=== PATIENT | female | born 1965 | race Caucasian/White ===

== ENCOUNTER 2020-04-01 14:42 | Emergency (ER) | payer SELFPAY ==
[~2020-04-01] VITALS: Ht 165.1 cm; Wt 52.2 kg
[2020-04-01 14:45] VITALS: BP 113/79
--- NOTE | 2020-04-01 14:45 | NUR ---
ED Nurse Note: Pt came by [facility] because "needs another colostomy bag." pt has LLQ colostomy bag. Stoma is beefy red,, stool is brown. Pt is alert and orientedx4, ambulatory. Set up on monitor. Pt has been seen by CHIARA.
--- NOTE | 2020-04-01 14:53 | Emergency Room Report ---
History of Present Illness General Chief Complaint: General Complaint Source: Patient, EMS Present Illness HPI Patient is a 54-year-old female noncompliant with questioning about her past medical history who presents to the ER from [facility] by EMS for colostomy bag change. Patient states that she needs her colostomy bag changed. She denies any other symptoms. She denies any fever or chills. She denies any abdominal pain. She denies any nausea or vomiting. 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 Patient History Last Menstrual Period: na Reviewed Nursing Documentation: PMH: Agreed; PSxH: Agreed Nursing Documentation-PMH Past Medical History: No History, Except For Hx Gastrointestinal Problems: Yes - colostomy History Of Psychiatric Problem: Yes Review of Systems All Other Systems: negative except mentioned in HPI Physical Exam Vital Signs Date Time Temp Pulse Resp B/P (MAP) Pulse Ox O2 Delivery O2 Flow Rate FiO2 04/01/20 14:44 98.1 72 16 110/76 (87) 99 Room Air Sp02 EP Interpretation: reviewed, normal General Appearance: alert, GCS 15, non-toxic, other - Disheveled Head: normocephalic, atraumatic Eyes: bilateral eye normal inspection, bilateral eye PERRL ENT: hearing grossly normal, normal pharynx, no angioedema, normal voice Neck: full range of motion, supple/symm/no masses Respiratory: chest non-tender, lungs clear, normal breath sounds, speaking full sentences Cardiovascular #1: regular rate, rhythm, no edema Gastrointestinal: normal bowel sounds, non tender, soft, non-distended, no guarding, no rebound, other - Colostomy site with colostomy bag and brown stool inside of colostomy done Rectal: deferred Musculoskeletal: normal range of motion 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 Mendoza, have assessed and agrees that patient is medically stable for discharge to an outpatient disposition. Diagnostic Impression: Primary Impression: Colostomy care ER Course Patient offered food and clean close. Colostomy care performed. After discussing risks and benefits of further diagnostics, treatment plans, as well as indications for and risks of admission, the patient is agreeable to being discharged home. I have explained that their evaluation and treatment in the emergency department today is an important step towards them achieving better health but that their evaluation today is not intended to replace further evaluation and treatment by a physician in their local clinic. I have explained that while the current findings suggest no immediate life threatening emergency they will require further evaluation and treatment by a physician of their choice in their area. They understand that it will be necessary for them to re view the final reports of their ED visit with their clinic physician. We have reviewed indications for return to the Emergency Department. I have explained that additional time may need to pass and/or additional testing as an outpatient may be necessary before a definitive diagnosis can be made. They tell me they are willing to follow up as instructed within the timeframe I recommend. They appear to understand what we discussed. Additionally they understand that if they are unable to be seen by an outpatient physician they are welcome, and in fact should, return to the Emergency Department for a repeat evaluation. The patient is stable at time of discharge. Last Vital Signs Date Time Temp Pulse Resp B/P (MAP) Pulse Ox O2 Delivery O2 Flow Rate FiO2 04/01/20 14:44 98.1 72 16 110/76 (87) 99 Room Air Disposition: HOME, SELF-CARE Condition: Stable Referrals: [facility], [facility] Rehan Paez [facility] Patient Instructions: Colostomy Home Guide Additional Instructions: The patient was provided with discharge instructions, notified to follow-up with a primary care doctor and or specialist in the next 24-48 hours, and to return to the ED if they have worsening of their symptoms. Please note that this report is being documented using FetchBack technology. This can lead to erroneous entry secondary to incorrect interpretation by the dictating instrument. Isi Mendoza M.D. Apr 01, 2020 14:53
--- NOTE | 2020-04-01 15:10 | NUR ---
ER DISCHARGE NOTE: Patient is cleared to be discharged per ERMD, pt is aox4, on room air, with stable vital signs. pt was given dc and prescription instructions, pt was able to verbalize understanding, pt id band removed. pt is able to ambulate with steady gait. pt took all belongings. Colostomy bag changed and skin care provided. Mini cog and homeless log completed. Pt provided food and resources.
[2020-04-01 15:11] VITALS: BP 120/82
== END 2020-04-01 15:11 | disposition home or self-care (01) ==
LOC: EDBD 14:42 → EMR 14:56
DX: Z43.3 Encounter for attention to colostomy (principal)
CPT/HCPCS: 99282